=== PATIENT | female | born 1955 | race Caucasian/White ===

== ENCOUNTER 2017-03-26 06:08 | Day surgery (SDC) | payer OTHER ==
[~2017-03-26 06:08] MED LIST: RINGER'S SOLUTION,LACTATED 1,000 ML IV PRN
[2017-03-26] MEDS ORDERED: RINGER'S SOLUTION,LACTATED 1,000 ML IV ONE (06:50)
[2017-03-26] MEDS ORDERED: RINGER'S SOLUTION,LACTATED 1,000 ML IV PRN (08:02)
[2017-03-26 09:06] VITALS: BP 138/73
--- NOTE | 2017-03-26 16:47 | OR ---
Operative Report - Dictated Report Narrative: OPERATIVE REPORT DATE OF OPERATION: 03/26/2017 PREOPERATIVE DIAGNOSIS: History of colon polyps. Family history of colon cancer POSTOPERATIVE DIAGNOSIS: Polyps in the cecum, at 85 cm, 80 cm, and 65 cm ( pathology pending). Diverticulosis OPERATION: Colonoscopy with hot biopsy forceps polypectomy in the cecum, at 85 cm, 80 cm, and 65 cm SURGEON: Miri Ogden MD ANESTHESIA: MAC Miles Sanders CRNA INDICATIONS FOR PROCEDURE: The patient is a 61-year-old female referred by Dr. Moncada. She had a tubular adenoma and a hyperplastic polyp removed on colonoscopy in 2007. A barium enema in 2009 revealed possible stool and spasm. Her brother had colon cancer at age 45. She is currently asymptomatic and moves her bowels 3 times a day. FINDINGS: Bilobed 4 mm cecal polyp. 3 mm polyps at 85 cm, 80 cm, and 65 cm ( pathology pending). Sigmoid diverticulosis NARRATIVE OF PROCEDURE: The patient was identified in the holding area, and prior to the administration of anesthetic, a multidisciplinary timeout was observed. With the patient in the left lateral position and after the administration of intravenous sedation, the perineum was inspected. There was no evidence of pilonidal disease or skin breakdown. The external appearance of the anus was normal. Sphincter tone was good. The flexible fiberoptic colonoscope was inserted into the rectum which was insufflated with air. The rectal mucosa and submucosal vascular pattern appeared normal, the prep was seen to be complete. The scope was advanced through the sigmoid colon, which contained numerous non-impacted noninflamed diverticular openings. The scope was advanced up the descending colon, and around the splenic flexure where the triangular haustral architecture of the transverse colon was seen. The scope was advanced across the transverse colon, around the hepatic flexure to the cecum, where the confluence of tenia and the ileocecal valve were identified. In the cecum was a 4 mm bilobed adenomatous appearing polyp. This was biopsied and then thoroughly destroyed with electrocautery. The site was seen to be complete and hemostatic. The mucosa at this level otherwise appeared normal. The scope was then slowly withdrawn in a circular fashion so that all aspects of colonic mucosa were inspected. The colon was somewhat capacious in caliber and redundant in course. The haustral architecture appeared well preserved throughout with no evidence of external compression. The mucosa and submucosal vascular pattern appeared normal, specifically there was no gross evidence to suggest colitis or inflammatory bowel disease and no AV malformations were seen. 3-4 mm polyps were encountered at 85 cm, 80 cm, and 65 cm. These were biopsied and then thoroughly destroyed with electrocautery. The sites were seen to be complete and hemostatic. The diverticulosis was mild to moderate in degree and confined primarily to the sigmoid colon. The scope was gradually withdrawn to the level of the rectum. As much insufflated air as possible was removed. The scope was withdrawn from the patient and the procedure terminated. The patient tolerated the anesthetic and procedure well without complication and was transferred back to the ambulatory surgery area awake and in stable condition. The patient remained stable throughout a period of postoperative observation. She denied abdominal discomfort, was able to tolerate by mouth intake, and was up without assistance. I shared the operative findings with the patient and she was given copies of the photographs which appear in the medical record. She was discharged home with instructions not to engage in hazardous activity today , but may resume normal activity tomorrow, and advance diet as tolerated. She is to continue those medications as listed in the history and physical exam. I made arrangements to contact her with the biopsy reports and will make additional recommendations for treatment and follow-up based upon those results. Reviewed and electronically signed
== END 2017-03-26 06:09 | disposition home or self-care (01) ==
LOC: AMB 06:08
PROVIDERS: ATTEND Surgery
PROC: 0DBL8ZX Excision of Transverse Colon, Via Natural or Artificial Opening Endoscopic, Diagnostic (ICD-10-PCS; 2017-03-26)
PROC: 0DBM8ZX Excision of Descending Colon, Via Natural or Artificial Opening Endoscopic, Diagnostic (ICD-10-PCS; 2017-03-26)
PROC: 0DBH8ZX Excision of Cecum, Via Natural or Artificial Opening Endoscopic, Diagnostic (ICD-10-PCS; principal; 2017-03-26 07:00)
DX: Z12.11 Encounter for screening for malignant neoplasm of colon (principal); K63.5 Polyp of colon; I10 Essential (primary) hypertension; E11.9 Type 2 diabetes mellitus without complications; I25.10 Atherosclerotic heart disease of native coronary artery without angina pectoris; E78.5 Hyperlipidemia, unspecified; F32.9 Major depressive disorder, single episode, unspecified; E66.01 Morbid (severe) obesity due to excess calories; Z68.41 Body mass index [BMI] 40.0-44.9, adult; F17.200 Nicotine dependence, unspecified, uncomplicated